=== PATIENT | female | born 1990 | race Caucasian/White ===

== ENCOUNTER 2016-09-21 06:51 | Outpatient (CLI) | payer SELFPAY ==
[~2016-09-21] VITALS: Ht 182.9 cm; Wt 99.5 kg
[2016-09-21 07:02] VITALS: BP 132/78
[2016-09-23] MEDS ORDERED: IBUP-1222 PO (09:36)
[2016-09-23] MEDS ORDERED: OXYC-302 PO (09:36)
== END 2016-09-21 09:15 | disposition home or self-care (01) ==
LOC: LDOP 06:51
PROVIDERS: ATTEND Obstetrics & Gynecology
DX: O42.92 Full-term premature rupture of membranes, unspecified as to length of time between rupture and onset of labor (principal); O48.0 Post-term pregnancy; Z3A.40 40 weeks gestation of pregnancy
CPT/HCPCS: 59025; 89060; 99211; G0463; Q0114

== ENCOUNTER 2016-10-25 07:42 | Emergency (ER) | payer OTHER ==
[~2016-10-25] VITALS: Ht 182.9 cm; Wt 86.8 kg
[~2016-10-25 07:42] MED LIST: IBUP-1222 PO; OXYC-302 PO
[2016-10-25] MEDS ORDERED: SODIUM CHLORIDE FLUSH 10ML SYR IVF ONE (08:30)
[2016-10-25] MEDS ORDERED: SODIUM CHLORIDE 0.9% 1,000ML IVBOLUS ONE (08:30)
[2016-10-25] MEDS ORDERED: ONDANSETRON 2MG/ML, 2ML IVPush ONE (08:30)
[2016-10-25] MEDS ORDERED: ONDANSETRON 2MG/ML, 2ML ONE (08:37)
[2016-10-25 08:46] LABS: ASPARTATE AMINO TRANSFERASE 19 U/L (15-37); BLOOD UREA NITROGEN 17 mg/dL (7-18)
[2016-10-25 09:27] VITALS: BP 122/70
[2016-10-25 10:06] LABS: PATH.CAST-FLAG NOT PRESENT; SPERM-FLAG NOT PRESENT; SRC-FLAG NOT PRESENT; XTAL-FLAG NOT PRESENT; YLC-FLAG NOT PRESENT
== END 2016-10-25 10:59 | disposition home or self-care (01) ==
LOC: ED 08:56
DX: K52.9 Noninfective gastroenteritis and colitis, unspecified (principal)
CPT/HCPCS: 36415; 80053; 81001; 83690; 84703; 85025; 87086; 96361; 96374; 99285; J2405; J7030

== ENCOUNTER 2016-10-31 10:38 | Emergency (ER) | payer OTHER ==
[~2016-10-31] VITALS: Ht 182.9 cm; Wt 86.5 kg
[2016-10-31] MEDS ORDERED: PREN1TAB10 PO (11:12)
[2016-10-31 12:13] VITALS: BP 120/75
== END 2016-10-31 12:40 | disposition home or self-care (01) ==
LOC: ED 11:09
DX: J02.8 Acute pharyngitis due to other specified organisms (principal); R11.2 Nausea with vomiting, unspecified
CPT/HCPCS: 87081; 87880; 99284